=== PATIENT | male | born 1950 | race Caucasian/White ===

== ENCOUNTER 2020-03-01 05:31 | Day surgery (SDC) | payer MEDICARE, OTHER ==
[2020-02-22 12:55] LABS: CLARITY,URINE CLEAR (Clear); COLOR,URINE YELLOW (Yellow); GLUCOSE, URINE NEGATIVE (Neg); KETONES,URINE NEGATIVE (Neg); LEUKOCYTE ESTERASE ,URINE NEGATIVE (Neg); NITRITES, URINE NEGATIVE (Neg); OCCULT BLOOD,URINE NEGATIVE (Neg); PH,URINE 6.5 (4.8-8.0); PROTEIN,URINE NEGATIVE (Neg); UROBILINOGEN,URINE 0.2 E.U/dL (0.2-1.0)
[2020-02-22 12:56] LABS: BASOPHILS % (AUTO) 0.5 % (0-1); EOSINOPHILS # (AUTO) 0.5 X10'3 (0-0.9); EOSINOPHILS % (AUTO) 9.2 % (0-6); LYMPHOCYTES # (AUTO) 1.8 X10'3 (1.1-4.8); LYMPHOCYTES % (AUTO) 30.9 % (21-51); MEAN CORPUSCULAR HEMOGLOBIN 34.7 PG (27.0-31.0); MEAN CORPUSCULAR HGB CONC 33.2 g/dL (33.0-36.5); MEAN CORPUSCULAR VOLUME 104.4 FL (78-98); MEAN PLATELET VOLUME 7.7 FL (7.4-10.4); MONOCYTES # (AUTO) 0.5 X10'3 (0-0.9); MONOCYTES % (AUTO) 7.9 % (2-12); NEUTROPHILS % (AUTO) 51.5 % (42-75); PRE OP HEMATOCRIT 43.7 % (42.0-52.0); PRE OP HEMOGLOBIN 14.5 g/dL (14.0-17.9); PRE OP PLATELET COUNT 191 X10'3 (140-440); RED BLOOD COUNT 4.18 X10'6 (4.70-6.10); RED CELL DISTRIBUTION WIDTH 13.9 % (11.5-14.5)
[2020-02-22 12:57] LABS: UA COLLECTION TYPE CLN CATCH MIDSTREAM
[2020-02-22 13:23] LABS: ALBUMIN 3.9 G/DL (3.4-5.0); ALBUMIN/GLOBULIN RATIO 1.3 (1.1-1.5); ALKALINE PHOSPHATASE 59 IU/L (46-116); BLOOD UREA NITROGEN 15 MG/DL (7-18); BUN/CREATININE RATIO 18.8 (5.4-32.0); CALCIUM 8.7 MG/DL (8.5-10.1); CHLORIDE 108 MMOL/L (99-107); PRE OP ALT 37 U/L (30-65); PRE OP ANION GAP 6 (8-16); PRE OP AST 22 U/L (10-37); PRE OP BILIRUB, TOTAL 0.4 MG/DL (0.0-1.0); PRE OP GLUCOSE 91 MG/DL (70-104); PRE OP POTASSIUM 4.2 MMOL/L (3.4-5.1); PRE OP SODIUM 140 MMOL/L (135-145); TOTAL CARBON DIOXIDE 25.8 MMOL/L (24-32); TOTAL PROTEIN 6.8 G/DL (6.4-8.2); eGFR > 90 ML/MIN
[2020-03-01] VITALS (22 sets, daily range): BP systolic 82–119; BP diastolic 41–72
[~2020-03-01] VITALS: Ht 172.7 cm; Wt 90.3 kg
[~2020-03-01 05:31] MED LIST: AMIT10TA6 PO; ASPI81TA52 PO; BETA15CR15 TOP; BUTA1TAB54 PO; CHOL500049 PO; DIAZ10TA5 PO; DOCUMENT DATE & TIME OF BETA-BLOCKER PO ONE; DULO-31 PO; EZET10TA6 PO; FAMO20TA10 PO; FINA5TAB11 PO; FISH OIL; FLO0.4C PO; FLUT16SP2 BOTHNARES; LEVO150T8 PO; LISI2.5T2 PO; LORA10TA7 PO; METO25TA6 PO; MYCOL15CR; NITR0.4T51 SL; RANO10003 PO; ROSU40TA PO; SUMA25TA35 PO; TOPI50TA24 PO; VALA100031 PO; acetaminophen 325mg tablet PO ONE; cefazolin/dext.iso 2gm/50ml 50 ML IV ONE; celeCOXIB 100mg capsule PO ONE; famotidine 10mg tablet PO ONE; gabapentin 300mg capsule PO ONE; metoclopramide 5 mg/ml inj IV ONE; oxyCODONE SR 10mg (sust. release) tab -2 tabs (20mg) PO ONE; ringers solution, lacted 1,000 ML IV SCH; tranexamic acid inj. 1,000 MG in normal saline 100 ML IV ONE; vancomycin 1,500 MG in NS 300ml IV soln IV ONE
[2020-03-01] MEDS ORDERED: LIDOcaine 1% (10mg/ml) 2ml vial ONE (06:19)
[2020-03-01] MEDS ORDERED: vancomycin 1,000mg inj ONE (06:43)
[2020-03-01] MEDS ORDERED: ondansetron/PF 4mg/2ml inj IV PRN ×2 (06:55→09:55)
[2020-03-01] MEDS ORDERED: hydrALAZINE 20mg/ml inj. IV PRN (06:55)
[2020-03-01] MEDS ORDERED: morphine 4 MG/ML inj SYRINge IV PRN (06:55)
[2020-03-01] MEDS ORDERED: ringers solution, lacted 1,000 ML IV SCH (06:55)
[2020-03-01] MEDS ORDERED: labetalol 20mg/4ml (5mg/ml) syringe IV PRN (06:55)
[2020-03-01] MEDS ORDERED: fentaNYL/PF 50MCG/1 ML 2ML syringe IV PRN ×2 (06:55)
[2020-03-01] MEDS ORDERED: morphine 2 MG/ML inj. syringe IV PRN (06:55)
[2020-03-01] MEDS ORDERED: ROPIVAcaine 0.2%/PF PUMP/bolus 550 ML ADDCANAL SCH (06:55)
[2020-03-01] MEDS ORDERED: ROPIVAcaine 0.2% (10 MG/5 ML) BOLUS INJECTION ADDCANAL PRN (06:55)
[2020-03-01] MEDS ORDERED: fentaNYL/PF 50MCG/1 ML 2ML syringe ONE (06:56)
[2020-03-01] MEDS ORDERED: MIDAZolam 1mg/ml 10ml vial ONE (06:57)
[2020-03-01] MEDS ORDERED: sevoflurane 250ml liquid IH ONE (06:58)
[2020-03-01] MEDS ORDERED: betamet diprop/prop gly 0.05% cream 15gm TP PRN (07:00)
[2020-03-01] MEDS ORDERED: SUMAtriptan 25 MG tablet PO PRN (07:00)
[2020-03-01] MEDS ORDERED: nitroGLYCERIN 0.4mg SUBLingual tab SL PRN (07:00)
[2020-03-01] MEDS ORDERED: ROPIVAcaine 0.5% (5mg/ml) 30ml vial ONE (07:35)
[2020-03-01] MEDS ORDERED: dexamethasone sod phosphate 4mg/ml inj. ONE (07:35)
[2020-03-01] MEDS: tamsulosin 0.4mg capsule PO SCH (08:00)
[2020-03-01] MEDS: loratadine 10mg tablet PO SCH (08:00)
--- NOTE | 2020-03-01 09:00 | NUR ---
Received from OR via BED, accompanied by Anesthesiologist DR PANG and report given by Anesthesiolgist. PATIENT WAKING UP, NO S/S OF PAIN, V/S STABLE, NEUROVASCULAR CHECKS INTACT, 20G PIV LUE, SCD ON, TARYN DRESSING TO RIGHT KNEE CDI WITH COLD POWDER PACK AND ON Q BALL AT 4ML/HR. BLE ELEVATED .
[2020-03-01] MEDS ORDERED: diphenhydrAMINE 25mg capsule PO PRN ×2 (09:55)
[2020-03-01] MEDS ORDERED: bisacodyl 10mg suppository rectal RC PRN (09:55)
[2020-03-01] MEDS ORDERED: oxyCODONE/APAP 10/325mg tablet PO PRN (09:55)
[2020-03-01] MEDS ORDERED: acetaminophen 325mg tablet PO PRN (09:55)
[2020-03-01] MEDS ORDERED: magnesium hydroxide 30ml (MOM) UD suspension PO PRN (09:55)
[2020-03-01] MEDS ORDERED: HYDROmorphone 1 mg/ml syringe IV PRN (09:55)
[2020-03-01] MEDS ORDERED: HYDROmorphone inj. 0.5 MG/0.5 ML DISP.SYRIN IV PRN (09:55)
--- NOTE | 2020-03-01 10:40 | NUR ---
PATIENT SLEEPY BUT ORIENTED X4, DENIES PAIN, V/S STABLE, NEUROVASCULAR CHECKS INTACT, 20G PIV LUE, SCD ON, TARYN DRESSING TO RIGHT KNEE CDI WITH COLD POWDER PACK AND ON Q BALL AT 4ML/HR. BLE ELEVATE. PATIENT TAKEN TO 4021A WITH ALL BELONGINGS AND HOOKED UP TO MONITORS IN ROOM AND REPORT GIVEN TO MEDICAL OFFICE REP WHO HAS TAKEN OVER PATIENT CARE.
[2020-03-01] MEDS ORDERED: diazepam 5mg tablet PO PRN (13:50)
[2020-03-01] MEDS ORDERED: valacyclovir 500mg tablet PO PRN (13:55)
[2020-03-01] MEDS: lisinopril 2.5mg tablet PO SCH (14:45)
[2020-03-01] MEDS ORDERED: tranexamic acid inj. 1,000 MG in normal saline 100ml IV soln 100 ML IV ONE (17:00)
[2020-03-01] MEDS: potassium cl 20mEq in 1/2 NS 1,000 ML IV SCH ×2 (17:39→18:30)
[2020-03-01] MEDS: cefazolin/dext.iso 2gm/50ml 50 ML IV SCH (17:39)
--- NOTE | 2020-03-01 18:40 | NUR ---
Patient in room [facility] 4021. I have received report from Maryjane MCCORMICK and had the opportunity to ask questions and assume patient care.
[2020-03-01] MEDS ORDERED: VANCOMYCIN 1,500MG inj. 1,500 MG in normal saline 500ml IV soln 300 ML IV SCH (20:00)
[2020-03-01] MEDS: metoprolol tartrate 12.5mg (1/2 tablet) PO SCH (20:00)
[2020-03-01] MEDS ORDERED: levoTHYROXINE 75mcg tablet PO SCH (21:00)
[2020-03-01] MEDS ORDERED: sennosides 8.6mg tablet PO SCH (21:00)
[2020-03-01] MEDS ORDERED: duloxetine 30mg CAPSULE.DR PO SCH (21:00)
[2020-03-01] MEDS ORDERED: finasteride 5mg tablet PO SCH (21:00)
[2020-03-01] MEDS ORDERED: atorvastatin 20mg tablet PO SCH (21:00)
[2020-03-01] MEDS ORDERED: ezetimibe 10mg tablet PO SCH (21:00)
[2020-03-01] MEDS ORDERED: amitriptyline 10mg tablet PO SCH (21:00)
[2020-03-01] MEDS: gabapentin 300mg capsule PO SCH (22:08)
[2020-03-01] MEDS: ascorbic acid 500mg tablet PO SCH (22:09)
[2020-03-01] MEDS: famotidine 10mg tablet PO SCH (22:10)
[2020-03-01] MEDS: topiramate 100mg tablet PO SCH (22:10)
[2020-03-01] MEDS: ranolazine 500mg SR tablet (Q12H) PO SCH (22:17)
[2020-03-02] MEDS: cefazolin/dext.iso 2gm/50ml 50 ML IV SCH (01:06)
[2020-03-02 02:00] VITALS: BP 112/64
[2020-03-02 06:00] VITALS: BP 106/60
[2020-03-02] MEDS: oxyCODONE/APAP 10/325mg tablet PO PRN ×2 (06:13→09:59)
[2020-03-02] MEDS: potassium cl 20mEq in 1/2 NS 1,000 ML IV SCH ×2 (06:15→09:55)
[2020-03-02 06:26] LABS: BASOPHILS % (AUTO) 0.2 % (0-1); EOSINOPHILS % (AUTO) 0.4 % (0-6); HEMATOCRIT 38.8 % (42.0-52.0); LYMPHOCYTES # (AUTO) 1.8 X10'3 (1.1-4.8); LYMPHOCYTES % (AUTO) 15.7 % (21-51); MEAN CORPUSCULAR HEMOGLOBIN 34.9 PG (27.0-31.0); MEAN CORPUSCULAR HGB CONC 33.5 g/dL (33.0-36.5); MEAN CORPUSCULAR VOLUME 104.1 FL (78-98); MEAN PLATELET VOLUME 7.7 FL (7.4-10.4); MONOCYTES # (AUTO) 0.9 X10'3 (0-0.9); MONOCYTES % (AUTO) 7.6 % (2-12); NEUTROPHILS # (AUTO) 8.8 X10'3 (1.8-7.7); NEUTROPHILS % (AUTO) 76.1 % (42-75); PLATELET COUNT 170 X10'3 (140-440); RED BLOOD COUNT 3.72 X10'6 (4.70-6.10); RED CELL DISTRIBUTION WIDTH 13.7 % (11.5-14.5); WHITE BLOOD COUNT 11.6 X10'3 (4.5-11.0)
[2020-03-02 06:37] LABS: ANION GAP 10 (8-16); CHLORIDE 114 MMOL/L (99-107); SODIUM 146 MMOL/L (135-145); TOTAL CARBON DIOXIDE 22.3 MMOL/L (24-32)
--- NOTE | 2020-03-02 06:44 | NUR ---
Problems reprioritized. Patient report given, questions answered & plan of care reviewed with Ciara MCCORMICK.
[2020-03-02] MEDS ORDERED: ROPIVAcaine inj 250 MG, ketorolac tromethamine inj. 30 MG, CloNIDine/PF inj 80 MCG, epi... IU ONE ×5 (06:45)
[2020-03-02] MEDS: tamsulosin 0.4mg capsule PO SCH (07:58)
[2020-03-02] MEDS: loratadine 10mg tablet PO SCH (07:58)
[2020-03-02] MEDS: ranolazine 500mg SR tablet (Q12H) PO SCH (07:59)
[2020-03-02] MEDS: gabapentin 300mg capsule PO SCH (07:59)
[2020-03-02] MEDS: famotidine 10mg tablet PO SCH (07:59)
[2020-03-02] MEDS ORDERED: fluticasone nasal spray 16GM bottle NS SCH (08:00)
[2020-03-02] MEDS: ascorbic acid 500mg tablet PO SCH (08:00)
[2020-03-02] MEDS ORDERED: multivitamins, therapeutics tablet PO SCH (08:00)
[2020-03-02] MEDS: metoprolol tartrate 12.5mg (1/2 tablet) PO SCH (08:00)
[2020-03-02] MEDS: topiramate 100mg tablet PO SCH (08:00)
[2020-03-02 08:04] VITALS: BP_SYST 121
[2020-03-02] MEDS: lisinopril 2.5mg tablet PO SCH (08:04)
[2020-03-02] MEDS ORDERED: aspirin 325mg tablet PO SCH (08:30)
[2020-03-02] MEDS ORDERED: celeCOXIB 100mg capsule PO SCH (20:00)
== END 2020-03-02 11:30 | disposition home or self-care (01) ==
LOC: PAS 05:31 → EDSTATUS 07:30 → ORTHO 4S 09:52 → UNDOADMOB 09:52 → ORTHO 4S 16:00 → PAS 03-02 11:30 → UNDODISOB 03-02 11:30
PROVIDERS: ATTEND Orthopaedic Surgery
DX: M17.11 Unilateral primary osteoarthritis, right knee (principal); Z20.828 Contact with and (suspected) exposure to other viral communicable diseases; I10 Essential (primary) hypertension; I25.10 Atherosclerotic heart disease of native coronary artery without angina pectoris; E03.9 Hypothyroidism, unspecified; K21.9 Gastro-esophageal reflux disease without esophagitis; Z87.891 Personal history of nicotine dependence; Z79.899 Other long term (current) drug therapy
CPT/HCPCS: 27447; 36415; 71046; 73560; 80051; 80053; 81003; 82948; 84443; 85025; 85610; 85730; 86885; 86900; 86901; 87081; 87635; 96361; 96365; 96366; 96367; 96375; 97110; 97116; 97161; 97530; A6454; C1713; C1776; G0378; J1100; J2001; J2250; J2765; J2795; J3010; J3370; J7040; J7120; A4215; A6449; A7000; J3480